=== PATIENT | male | born 1965 | race Caucasian/White ===

== ENCOUNTER 2021-08-16 01:03 | Emergency (ER) | payer OTHER ==
[~2021-08-16] VITALS: Ht 170.2 cm; Wt 93.4 kg
[2021-08-16 01:31] VITALS: BP 155/93
--- NOTE | 2021-08-16 01:35 | NUR ---
URINE COLLECTED AND SENT TO LAB
--- NOTE | 2021-08-16 01:35 | NUR ---
COVID SWAB DONE AND SENTT O LAB
[2021-08-16 02:17] LABS: BASOPHILS # (AUTO) 0.2 K/uL (0.0-0.2); BASOPHILS % (AUTO) 1.2 % (0.0-2.0); EOSINOPHILS % (AUTO) 1.1 % (0.0-6.0); HEMATOCRIT 44 % (39-51); HEMOGLOBIN 14.6 g/dL (13.5-17.5); LYMPHOCYTES # (AUTO) 3.1 K/uL (0.8-4.8); MEAN CORPUSCULAR HGB CONC 33 g/dl (31.0-36.0); MEAN CORPUSCULAR VOLUME 88 fL (80-96); MONOCYTES % (AUTO) 7.6 % (2.0-12.0); NEUTROPHILS # (AUTO) 8.5 K/uL (1.8-8.9); NEUTROPHILS % (AUTO) 66.1 % (43.0-81.0); PLATELET COUNT (AUTO) 284 K/uL (150-450); WHITE BLOOD COUNT (AUTO) 12.9 K/uL (4.3-11.0)
[2021-08-16 02:40] LABS: ALANINE AMINOTRANSFERASE 17 U/L (12-78); ALBUMIN 4.4 g/dL (3.4-5.0); ALCOHOL, BLOOD < 3 mg/dL (0-0); ALKALINE PHOSPHATASE 64 U/L (46-116); ASPARTATE AMINOTRANSFERASE 22 U/L (15-37); BILIRUBIN,DIRECT 0.2 mg/dL (0.0-0.2); BILIRUBIN,TOTAL 0.6 mg/dL (0.2-1.0); CALCIUM, SERUM 9.5 mg/dL (8.5-10.1); CARBON DIOXIDE 22 mmol/L (21-32); CHLORIDE 106 mmol/L (98-107); CREATININE 1.1 mg/dL (0.6-1.3); GLUCOSE 115 mg/dL (74-106); POTASSIUM 3.5 mmol/L (3.5-5.1); SODIUM SERUM 140 mmol/L (136-145); TOTAL PROTEIN, SERUM 8.7 g/dL (6.4-8.2); UREA NITROGEN, BLOOD 18 mg/dL (7-18)
[2021-08-16 02:53] LABS: BILIRUBIN,URINE SMALL (NEGATIVE); COLOR,URINE YELLOW (YELLOW); LEUKOCYTE ESTERASE ,URINE NEGATIVE (NEGATIVE); NITRITE, URINE NEGATIVE (NEGATIVE); PH,URINE 5.5 (5.0-8.0); PROTEIN,URINE TRACE mg/dl (NEGATIVE); UGLUCOSE NEGATIVE (NEGATIVE); UROBILINOGEN,URINE 0.2 EU/dL (0.2)
[2021-08-16 02:58] LABS: ACETAMINOPHEN < 2 ug/ml (10-30)
--- NOTE | 2021-08-16 03:35 | NUR ---
FAXED CLINICALS AND FACESHEET TO [facility]
--- NOTE | 2021-08-16 04:47 | NUR ---
TRANSFER INFORMATION PATIENT ACCEPTED AT [facility] UNDER DR. DOMINGO. NUMBER FOR REPORT:
--- NOTE | 2021-08-16 04:53 | NUR ---
APA TRANSPO: 30-45 MIN
--- NOTE | 2021-08-16 05:30 | NUR ---
apa at bed side to orange picker the pt
--- NOTE | 2021-08-16 05:32 | NUR ---
report given to stan troy
--- NOTE | 2021-08-16 05:55 | NUR ---
pt was transferred to [facility] in stable condition w/ all his belongings
== END 2021-08-16 06:58 ==
LOC: ER 01:12
DX: R45.851 Suicidal ideations (principal); R45.850 Homicidal ideations; F17.210 Nicotine dependence, cigarettes, uncomplicated; Z20.822 Contact with and (suspected) exposure to COVID-19
CPT/HCPCS: 99285; 99406; 85025; 80048; 80076; 81003; 36415; 87426; 80143; 80320; 80307; C9803; G0480